=== PATIENT | male | born 1990 | race Caucasian/White ===

== ENCOUNTER 2024-09-25 20:03 | Inpatient (IN) | payer MEDICAID ==
[~2024-09-25] VITALS: Ht 167.6 cm; Wt 74.9 kg
[2024-09-25 20:12] VITALS: O2SAT 98
[2024-09-25 21:15] LABS: BASOPHILS % 0.4 % (0.0-2.0); EOSINOPHILS % 0.1 % (0.0-5.0); HEMATOCRIT. 52.4 % (42.0-52.0); HEMOGLOBIN. 17.6 g/dL (14.0-18.0); LYMPHOCYTES % 8.8 % (20.0-50.0); MEAN PLATELET VOLUME 9.4 fl (7.4-10.4); MONOCYTES % 3.1 % (2.0-8.0); NEUTROPHILS % 87.6 % (40.0-76.0); PLATELET 446 x1000/uL (130-400); RED BLOOD CELL COUNT 5.84 mill/uL (4.7-6.1); RED CELL DISTRIBUTION WIDTH 13.0 % (11.6-14.6)
[2024-09-25 21:28] LABS: INR 1.0
[2024-09-25 21:43] LABS: CREATININE 2.9 mg/dL (0.6-1.3)
[2024-09-25 21:44] LABS: TROPONIN I HIGH SENSITIVITY 9 ng/L (3.0-53); UREA NITROGEN BLOOD 40 mg/dL (9-23)
[2024-09-25 23:03] LABS: INR 1.0
[2024-09-25 23:08] LABS: CREATININE 2.8 mg/dL (0.6-1.3); UREA NITROGEN BLOOD 43 mg/dL (9-23)
[2024-09-25 23:09] LABS: ETHANOL BLOOD < 10 mg/dL (<10)
[2024-09-25 23:10] LABS: ASPARTATE AMINOTRANSFERASE 37 IU/L (<34); BILIRUBIN DIRECT 0.5 mg/dL (<=3.0); BILIRUBIN TOTAL 1.9 mg/dL (0.1-1.0); PROTEIN TOTAL 9.8 g/dL (6.0-8.3)
[2024-09-25] MEDS: ONDANSETRON HCL 4MG/2ML INJ IV ONE (23:20)
[2024-09-25] MEDS: SODIUM CHLORIDE 0.9% (SEPSIS BOLUS) IV ONE (23:20)
[2024-09-25] MEDS: CEFTRIAXONE 1GM/50ML 50 ML IV ONE (23:20)
[2024-09-26] MEDS: METRONIDAZOLE 500 MG PREMIX 100 ML IV ONE (00:01)
[2024-09-26 02:27] LABS: CLARITY URINE CLEAR (CLEAR); COLOR URINE YELLOW (YELLOW); GLUCOSE URINE NEGATIVE (NEGATIVE); KETONES URINE 2+ (NEGATIVE); LEUKOCYTE ESTERASE URINE NEGATIVE (NEGATIVE); NITRITE URINE NEGATIVE (NEGATIVE); OCCULT BLOOD URINE NEGATIVE (NEGATIVE); PH URINE 5.5 (4.5-8.0); PROTEIN URINE 2+ (NEGATIVE); SPECIFIC GRAVITY URINE 1.017 (1.005-1.030); UROBILINOGEN URINE 1.0 E.U./dL (0.2-1.0)
[2024-09-26 02:39] LABS: BACTERIA URINE 1+; HYALINE CASTS URINE 0-5 /lpf; RBC URINE NONE SEEN /hpf (0-2); SQUAMOUS EPITHELIAL CELL URINE 1+ /lpf (RARE/1+); WBC URINE 0-2 /hpf (0-2)
[2024-09-26 02:40] LABS: *AMPHETAMINES SCREEN URINE NEGATIVE (NEGATIVE); *BARBITURATES SCREEN URINE NEGATIVE (NEGATIVE); *BENZODIAZEPINES SCREEN URINE NEGATIVE (NEGATIVE); *COCAINE SCREEN URINE NEGATIVE (NEGATIVE); CANNABINOID URINE SCREEN PRESUMPTIVE POSITIVE (NEGATIVE); ECSTASY MDMA SCREEN URINE NEGATIVE (NEGATIVE); METHADONE URINE SCREEN NEGATIVE (NEGATIVE); OPIATES URINE SCREEN NEGATIVE (NEGATIVE); PHENCYCLIDINE URINE SCREEN NEGATIVE (NEGATIVE)
[2024-09-26 03:12] VITALS: BP 128/91; PULSE 89; RESP 12; TEMP 36.7516
[2024-09-26] MEDS ORDERED: DOCUSATE SODIUM 100MG CAPSULE PO PRN (04:00)
[2024-09-26] MEDS ORDERED: LORAZEPAM 2MG/ML UD SYRINGE IV PRN (04:00)
[2024-09-26] MEDS ORDERED: ACETAMINOPHEN 325MG TABLET PO PRN (04:00)
[2024-09-26] MEDS ORDERED: IPRATROPIUM/ALBUTEROL 0.5-3(2.5)MG/3ML NEB HHN PRN (04:00)
[2024-09-26] MEDS: ACETAMINOPHEN 325MG TABLET PO PRN (05:02)
[2024-09-26] MEDS: FOLIC ACID 1 MG, THIAMINE HCL 100 MG, MVI, ADULT NO.1 10 ML in DEXTROSE 5% WATER 1,000 ML IV ONE (06:07)
[2024-09-26] MEDS: ONDANSETRON HCL 4MG/2ML INJ IV PRN (06:07)
[2024-09-26 08:00] VITALS: BP 136/71; PULSE 60; RESP 17; TEMP 36.7; O2SAT 97
[2024-09-26] MEDS: METRONIDAZOLE 500 MG PREMIX 100 ML IV SCH ×2 (08:11→14:57)
[2024-09-26] MEDS ORDERED: PHENOBARBITAL 60MG TABLET PO PRN (08:30)
[2024-09-26] MEDS ORDERED: LORAZEPAM 1MG TABLET PO PRN ×3 (08:30)
[2024-09-26] MEDS ORDERED: CHLORDIAZEPOXIDE 25MG CAPSULE PO PRN ×3 (08:30)
[2024-09-26] MEDS ORDERED: PHENOBARBITAL 30 MG TABLET PO PRN ×2 (08:30)
[2024-09-26] MEDS: MULTIVITAMINS,THER W-MINERALS TABLET PO SCH (09:20)
[2024-09-26] MEDS: FOLIC ACID 1MG TABLET PO SCH (09:20)
[2024-09-26] MEDS: THIAMINE HCL 100 MG/1 ML 2ML VIAL IM SCH (09:20)
[2024-09-26] MEDS ORDERED: DEXTROSE 50% WATER 50ML SYRINGE IV PRN (10:30)
[2024-09-26 12:00] VITALS: BP 127/96; PULSE 56; RESP 17; TEMP 36.6; O2SAT 98
[2024-09-26] MEDS: SODIUM CHLORIDE 0.9% 1,000 ML IV SCH (12:01)
[2024-09-26] MEDS: FAMOTIDINE 20MG/2ML VIAL IV SCH (12:01)
[2024-09-26 12:09] LABS: PHOSPHORUS 2.7 mg/dL (2.5-4.9)
[2024-09-26 12:12] LABS: T4 FREE 1.32 ng/dL (0.89-1.76)
[2024-09-26 16:00] VITALS: BP 120/89; PULSE 61; RESP 19; TEMP 36.8; O2SAT 98
[2024-09-26 17:27] LABS: HEPATITIS A AB IGM NEGATIVE (Negative)
[2024-09-26 17:28] LABS: HEPATITIS B CORE AB IGM NEGATIVE (Negative); HEPATITIS C AB NON REACTIVE (Neg) (Negative)
[2024-09-26] MEDS: CEFTRIAXONE 1GM/50ML 50 ML IV SCH (17:37)
[2024-09-26 20:00] VITALS: BP 124/83; PULSE 66; RESP 22; TEMP 36.4; O2SAT 96
[2024-09-26] MEDS: DOCUSATE SODIUM 100MG CAPSULE PO SCH (21:03)
[2024-09-26] MEDS: SENNOSIDES 8.6MG TABLET PO SCH (21:03)
[2024-09-26] MEDS ORDERED: CEFTRIAXONE 1GM/50ML 50 ML IV SCH (23:00)
[2024-09-27] VITALS (7 sets, daily range): BP systolic 98–130; BP diastolic 74–87; PULSE 50–67; RESP 13–20; TEMP 36.4–36.9; O2SAT 96–98
[2024-09-27 01:01] LABS: CREATININE 0.8 mg/dL (0.6-1.3)
[2024-09-27 01:02] LABS: LDL CHOLESTEROL 150.0 mg/dL (5-100); TRIGLYCERIDE 162.0 mg/dL (0-150); UREA NITROGEN BLOOD 18 mg/dL (9-23)
[2024-09-27 01:03] LABS: ASPARTATE AMINOTRANSFERASE 25 IU/L (<34); LACTATE DEHYDROGENASE 146.0 IU/L (120-246)
[2024-09-27 01:04] LABS: BILIRUBIN TOTAL 1.8 mg/dL (0.1-1.0); PROTEIN TOTAL 5.9 g/dL (6.0-8.3)
[2024-09-27 06:51] LABS: CLARITY URINE CLEAR (CLEAR); COLOR URINE ORANGE (YELLOW); GLUCOSE URINE NEGATIVE (NEGATIVE); KETONES URINE 2+ (NEGATIVE); LEUKOCYTE ESTERASE URINE 1+ (NEGATIVE); NITRITE URINE POSITIVE (NEGATIVE); OCCULT BLOOD URINE NEGATIVE (NEGATIVE); PH URINE 6.0 (4.5-8.0); PROTEIN URINE TRACE (NEGATIVE); SPECIFIC GRAVITY URINE 1.030 (1.005-1.030); UROBILINOGEN URINE 1.0 E.U./dL (0.2-1.0)
[2024-09-27 06:55] LABS: BASOPHILS % 0.8 % (0.0-2.0); EOSINOPHILS % 0.8 % (0.0-5.0); HEMATOCRIT. 37.6 % (42.0-52.0); HEMOGLOBIN. 12.7 g/dL (14.0-18.0); LYMPHOCYTES % 28.5 % (20.0-50.0); MEAN PLATELET VOLUME 9.0 fl (7.4-10.4); MONOCYTES % 10.5 % (2.0-8.0); NEUTROPHILS % 59.4 % (40.0-76.0); PLATELET 304 x1000/uL (130-400); RED BLOOD CELL COUNT 4.14 mill/uL (4.7-6.1); RED CELL DISTRIBUTION WIDTH 13.1 % (11.6-14.6)
[2024-09-27 07:04] LABS: RBC URINE 0-2 /hpf (0-2); WBC URINE 0-2 /hpf (0-2)
[2024-09-27 07:05] LABS: SQUAMOUS EPITHELIAL CELL URINE NONE SEEN /lpf (RARE/1+)
[2024-09-27 07:07] LABS: BACTERIA URINE TRACE
[2024-09-27 07:09] LABS: PROTEIN URINE RANDOM 28.0 mg/dL
[2024-09-27 07:09] LABS: BILIRUBIN TOTAL 1.7 mg/dL (0.1-1.0); CREATININE 0.8 mg/dL (0.6-1.3); UREA NITROGEN BLOOD 17 mg/dL (9-23)
[2024-09-27 07:10] LABS: CREATININE URINE RANDOM 221.4 mg/dL
[2024-09-27 07:11] LABS: ASPARTATE AMINOTRANSFERASE 25 IU/L (<34); BILIRUBIN DIRECT 0.5 mg/dL (<=3.0); PHOSPHORUS 2.4 mg/dL (2.5-4.9); PROTEIN TOTAL 5.7 g/dL (6.0-8.3)
[2024-09-27] MEDS ORDERED: FOLIC ACID 1MG TABLET PO SCH (09:00)
[2024-09-27] MEDS ORDERED: PANT40TA51 MT (14:44)
[2024-09-28 08:10] LABS: COMPLEMENT C3 125 mg/dL (82-167); COMPLEMENT C4 27 mg/dL (12-38)
[2024-09-28 09:07] LABS: ANTI-NUCLEAR ANTIBODIES DIRECT Negative (Negative); VITAMIN D 25-OH 17.5 ng/mL (30.0-100.0)
[2024-09-29] MEDS ORDERED: THIAMINE HCL 100MG TABLET PO SCH (09:00)
[2024-10-04 19:06] LABS: A/G RATIO 1.0 (0.7-1.7); BETA GLOBULIN 1.1 g/dL (0.7-1.3); GAMMA GLOBULINS 1.0 g/dL (0.4-1.8); GLOBULIN TOTAL 3.1 g/dL (2.2-3.9); M-SPIKE Not Observed g/dL (Not Observed); TOTAL PROTEIN SERUM 6.3 g/dL (6.0-8.5)
== END 2024-09-27 20:14 | disposition home or self-care (01) | DRG 720 ==
LOC: ER 20:03 → EDBEDREQ 09-26 01:23 → EDBEDREQTM 09-26 01:23 → ENRESERV 09-26 01:36 → 3WST 09-26 02:28
PROVIDERS: ADMIT Internal Medicine; ATTEND Internal Medicine
DX: A41.9 Sepsis, unspecified organism (principal); N17.0 Acute kidney failure with tubular necrosis; E87.20 Acidosis, unspecified; K57.31 Diverticulosis of large intestine without perforation or abscess with bleeding; R16.0 Hepatomegaly, not elsewhere classified; K76.0 Fatty (change of) liver, not elsewhere classified; E83.52 Hypercalcemia; K40.20 Bilateral inguinal hernia, without obstruction or gangrene, not specified as recurrent; N18.9 Chronic kidney disease, unspecified; K52.9 Noninfective gastroenteritis and colitis, unspecified; E86.0 Dehydration; F10.10 Alcohol abuse, uncomplicated; F17.210 Nicotine dependence, cigarettes, uncomplicated; Y90.1 Blood alcohol level of 20-39 mg/100 ml; K59.00 Constipation, unspecified; Z82.49 Family history of ischemic heart disease and other diseases of the circulatory system
CPT/HCPCS: 36415; 71045; 74176; 76700; 80048; 80053; 80061; 80076; 80305; 80320; 81003; 82270; 82306; 82330; 82533; 82550; 82570; 82784; 82962; 82977; 83036; 83605; 83615; 83735; 83880; 83930; 83970; 84100; 84145; 84155; 84156; 84165; 84439; 84443; 84484; 85025; 86038; 86160; 86334; 86705; 86709; 86850; 86900; 87340; 93005; 99291; A4606; J0696; J1308; J2405; J3411; J3490; J7030; J7070; G0480